=== PATIENT | female | born 1990 ===

== ENCOUNTER → 2020-06-01 | Outpatient (CLI) | payer BC ==
--- NOTE | 2020-06-01 10:12 | Diagnostic Imaging Report ---
PROCEDURE: MRI left joint lower extremity without contrast. TECHNIQUE: Multiplanar, multisequence non contrast-enhanced MRI of the left ankle was accomplished. INDICATION: Trauma, recent fall. Patient is currently in a cast COMPARISONS: None available. FINDINGS: TENDONS: Achilles is intact. The peroneus longus and brevis tendons are intact with some very minimal tenosynovitis present. Posterior tibialis, flexor digitorum longus and flexor hallucis longus are normal where visualized. The anterior tibialis, extensor hallux longus and extensor digitorum longus are normal. LIGAMENTS: The anterior and posterior distal tibiofibular ligaments are intact. Anterior talofibular ligament is poorly visualized and likely torn. Calcaneofibular ligament has intermediate signal in its mid aspect likely due to partial-thickness tear/sprain. Posterior talofibular ligament is intact. The deep bundles of the deltoid ligament have abnormal signal and disruption throughout portions of the anterior and posterior components indicative of at least partial if not full-thickness tear. There is also some lateral subluxation of the talus in relation to the tibial plafond. Spring ligament is most likely intact. BONES AND CARTILAGE: Lateral subluxation of the talus is likely due to insufficiency in the deltoid ligament. Patchy bone marrow edema like signal is present in the caudal aspect of the talus and the anterior aspect of the calcaneus. However, no macroscopic fracture lines are appreciated. There is no bone marrow edema in the distal tibia. Please note that small avulsion fractures from the fibula and tibia can be occult by MRI. There appears to be some mild degenerative changes in the tibiotalar joint. SOFT TISSUES: No evidence of plantar fasciitis. No abnormal soft tissue scar/fibrosis within the tarsal canal/sinus tarsi or tarsal tunnel. Small ankle joint effusion and/or synovitis. IMPRESSION: 1. High-grade partial versus areas of complete tear involving the medial deltoid ligament. The talus has abnormal slight lateral subluxation further supporting the hypermobility of the deltoid ligament insufficiency. 2. The anterior talofibular ligament and calcaneal fibular ligament have at least partial-thickness tears present. 3. The distal tibiofibular syndesmotic ligaments are intact. 4. Patchy bone marrow edema in the talus and calcaneus are likely due to sites of bone marrow contusion. No macroscopic fracture lines are appreciated 5. No discrete fracture in the tibia or fibula, although small avulsion fractures can be occult by MRI. Dictated by: Dictated on workstation # [id number]
== END ==
LOC: RAD 08:45
PROVIDERS: ATTEND Orthopaedic Surgery
DX: S93.432A Sprain of tibiofibular ligament of left ankle, initial encounter (principal); W19.XXXA Unspecified fall, initial encounter
CPT/HCPCS: 73721